=== PATIENT | male | born 2000 | race Caucasian/White ===

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

== ENCOUNTER 2021-09-04 10:18 | Emergency (ER) | payer OTHER, BC ==
[2021-09-04 10:32] VITALS: BP 126/84; PULSE 98
[2021-09-04] MEDS ORDERED: Sodium Chloride 0.9% 10 ML Syringe FLUSH PRN (10:35)
[2021-09-04 11:15] LABS: CHLORIDE,CL 107 mmol/L (98-107); SODIUM,NA 143 mmol/L (136-145)
[2021-09-04] MEDS: Iopamidol 612 MG/ML 100 ML Bottle ONE (11:15)
== END 2021-09-04 13:00 | disposition home or self-care (01) ==
LOC: LL.ED 10:18
DX: S40.012A Contusion of left shoulder, initial encounter (principal); Z72.0 Tobacco use; V49.49XA Driver injured in collision with other motor vehicles in traffic accident, initial encounter; Y92.410 Unspecified street and highway as the place of occurrence of the external cause
CPT/HCPCS: 36415; 71260; 73030-LT; 74177; 80053; 85025; 99283; 99284-25; Q9967